=== PATIENT | female | born 1965 | race Caucasian/White ===

== ENCOUNTER 2018-01-25 14:39 | Inpatient (IN) | payer OTHER ==
[~2018-01-25] VITALS: Ht 160 cm; Wt 83.5 kg
[2018-01-25 16:27] LABS: BASOPHILS # (AUTO) 0.1 (0.0-0.1); BASOPHILS % 0.5 % (0.0-1.0); EOSINOPHILS # (AUTO) 0.1 (0.0-0.4); EOSINOPHILS % 0.6 % (0.0-6.0); HEMATOCRIT 34.7 % (34.2-44.1); HEMOGLOBIN 11.6 g/dL (12.0-16.0); LYMPHOCYTES # (AUTO) 2.3 (1.0-3.2); LYMPHOCYTES % 15.1 % (18.0-39.1); MEAN CORPUSCULAR HEMOGLOBIN 29.3 pg (28-32); MEAN CORPUSCULAR HGB CONC 33.4 g/dL (31-35); MEAN CORPUSCULAR VOLUME 87.6 fL (81-99); MONOCYTES # (AUTO) 0.8 (0.2-0.8); MONOCYTES % 5.4 % (4.4-11.3); NEUTROPHILS # (AUTO) 11.7 (2.1-6.9); NEUTROPHILS % 77.5 % (38.7-80.0); PLATELET COUNT 332 x10e3/uL (140-360); RED BLOOD COUNT 3.96 x10e6/uL (3.6-5.1); RED CELL DISTRIBUTION WIDTH 13.2 % (11.7-14.4)
[2018-01-25 16:35] LABS: INR 0.9
[2018-01-25 16:36] LABS: PARTIAL THROMBOPLASTIN TIME 26.8 seconds (23.8-35.5)
[2018-01-25 16:45] LABS: ALANINE AMINOTRANSFERASE 51 IU/L (0-55); ALBUMIN 2.8 g/dL (3.5-5.0); ALBUMIN/GLOBULIN RATIO 0.6 (0.8-2.0); ALKALINE PHOSPHATASE 115 IU/L (40-150); ANION GAP 17.2 mmol/L (8-16); BLOOD UREA NITROGEN 18 mg/dL (7-26); BUN/CREATININE RATIO 20 (6-25); CALCIUM 8.9 mg/dL (8.4-10.2); CARBON DIOXIDE 22 mmol/L (22-29); CHLORIDE 100 mmol/L (98-107); CREATINE KINASE 125 IU/L (29-168); CREATININE, SERUM 0.92 mg/dL (0.57-1.11); EST GLOMERULAR FILTRATION RATE > 60 ML/MIN (60-); GLUCOSE 353 mg/dL (74-118); POTASSIUM 3.2 mmol/L (3.5-5.1); SODIUM 136 mmol/L (136-145)
[2018-01-25] MEDS ORDERED: FUROSEMIDE INJ 10 MG/ML 4 ML VIAL IV ONE (16:45)
[2018-01-25 17:15] LABS: CLARITY,URINE SL CLOUDY (CLEAR); COLOR,URINE STRAW (YELLOW); LEUKOCYTE ESTERASE ,URINE NEGATIVE (NEGATIVE); NITRITE,URINE POSITIVE (NEGATIVE); PROTEIN,URINE DIPSTICK 1+ (NEGATIVE)
[2018-01-25 17:16] LABS: BILIRUBIN,URINE NEGATIVE (NEGATIVE); KETONES,URINE 1+ (NEGATIVE); URINE UROBILINOGEN 0.2 mg/dL (0.2 - 1)
--- NOTE | 2018-01-25 17:21 | Diagnostic Imaging Report ---
EXAMINATION: CHEST SINGLE (PORTABLE) COMPARISON: None INDICATION: Shortness of breath DISCUSSION: Frontal view of the chest obtained at 1636 hours. HEART AND MEDIASTINUM: The heart is top normal in size LINES: None. LUNGS: Diffuse alveolar airspace opacities in a perihilar distribution. Pulmonary vessels are prominent and indistinct. PLEURA: No large effusions. No pneumothorax BONES AND SOFT TISSUES: No focal osseous lesion. The soft tissues are normal. IMPRESSION: Pulmonary vascular congestion and pulmonary edema. Signed by: Dr. Miguel A Alston MD on 01/25/2018 5:18 PM
[2018-01-25 17:27] LABS: BACTERIA,URINE MANY /HPF; EPITHELIAL CELLS,URINE RARE /LPF; YEAST,URINE MODERATE
--- OUTSIDE RECORDS SUMMARY | 2018-01-25 19:11 | XMS REPORT ---
Author Author [facility] Address Unknown Phone Unavailable Care Team Providers Care Personal Coach Name Role Phone Patrica BERNARD Unavailable Unavailable Problems This patient has no known problems. Allergies, Adverse Reactions, Alerts This patient has no known allergies or adverse reactions. Medications This patient has no known medications. Results Test Description Test Time Test Comments Text Results Atomic Results Result Comments CHEST SINGLE (PORTABLE) 2018-01-25 17:16:00 [place] [id number] Patient Name: ADELFO BERUMEN MR #: [id number] : 1965 Age/Sex: 52/F Req #: [id number] Adm Physician: Ordered by: EMERY BERNARD MD Report #: [id number] Location: ER Room/Bed: Procedure: [id number] DX/CHEST SINGLE (PORTABLE) Exam Date: 01/25/18 Exam Time: 1630 REPORT STATUS: Signed EXAMINATION: CHEST SINGLE (PORTABLE) COMPAR LANEY: None INDICATION: Shortness of breath DISCUSSION: Frontal view of the chest obtained at 1636 hours. HEART AND MEDIASTINUM: The heart is top normal in size LINES: None. LUNGS: Diffuse alveolar airspace opacities in a perihilar distribution. Pulmonary vessels are prominent and indistinct. PLEURA: No large effusions. No pneumothorax BONES AND SOFT TISSUES: No focal osseous lesion. The soft tissues are normal. IMPRESSION: Pulmonary vascular congestion and pulmonary edema. Signed by: Dr. Miguel A Alston MD on 01/25/2018 5:18 PM Dictated By: MIGUEL A ALSTON MD 17 Transcribed By: CONY on 01/25/181717 COPY TO: EMERY BERNARD MD
[2018-01-25] MEDS ORDERED: ASPIRIN 81 MG CHEW TAB PO ONE (19:15)
[2018-01-25] MEDS ORDERED: DEXTROSE 50% SYRINGE 50 ML IV PRN (21:00)
[2018-01-25] MEDS: INSULIN REGULAR, HUMAN 100 UNIT/1 ML 3ML VIAL SQ SCH (21:27)
--- NOTE | 2018-01-25 23:35 | NUR ---
REC'D REPORT FROM JEANETTE PERALTA. PT ALERT AND ORIENTED X4, 2L NC SATS 94%. NO COMPLAINTS AT THIS TIME. CALL YUAN IN REACH
[2018-01-26] MEDS ORDERED: POTASSIUM CHLORIDE 20 MEQ TAB CR PO STA (00:21)
[2018-01-26 00:23] LABS: CREATINE KINASE MB 1.4 ng/mL (0-5.0)
[2018-01-26 07:01] LABS: CHOL/HDL RATIO 4.4 (3.0-3.6)
[2018-01-26] MEDS: INSULIN REGULAR, HUMAN 100 UNIT/1 ML 3ML VIAL SQ SCH ×4 (07:50→21:00)
[2018-01-26 07:52] LABS: CREATINE KINASE MB 1.2 ng/mL (0-5.0)
[2018-01-26] MEDS ORDERED: CEFTRIAXONE SOD 1 GM VIAL IV SCH (08:15)
[2018-01-26] MEDS ORDERED: POTASSIUM CHLORIDE 20 MEQ TAB CR PO ONE (08:30)
[2018-01-26 08:33] LABS: ANION GAP 16.4 mmol/L (8-16); CARBON DIOXIDE 23 mmol/L (22-29); CHLORIDE 100 mmol/L (98-107); CREATININE, SERUM 0.75 mg/dL (0.57-1.11); EST GLOMERULAR FILTRATION RATE > 60 ML/MIN (60-); GLUCOSE 273 mg/dL (74-118); POTASSIUM 3.4 mmol/L (3.5-5.1); SODIUM 136 mmol/L (136-145)
[2018-01-26 08:37] LABS: CALCIUM 6.7 mg/dL (8.4-10.2)
[2018-01-26 08:43] LABS: BLOOD UREA NITROGEN 13 mg/dL (7-26); BUN/CREATININE RATIO 17 (6-25)
[2018-01-26 08:53] LABS: BASOPHILS # (AUTO) 0.1 (0.0-0.1); BASOPHILS % 0.4 % (0.0-1.0); EOSINOPHILS # (AUTO) 0.1 (0.0-0.4); EOSINOPHILS % 0.5 % (0.0-6.0); HEMATOCRIT 37.3 % (34.2-44.1); LYMPHOCYTES # (AUTO) 2.1 (1.0-3.2); LYMPHOCYTES % 14.3 % (18.0-39.1); MEAN CORPUSCULAR HEMOGLOBIN 29.2 pg (28-32); MEAN CORPUSCULAR HGB CONC 32.2 g/dL (31-35); MEAN CORPUSCULAR VOLUME 90.8 fL (81-99); MONOCYTES # (AUTO) 0.8 (0.2-0.8); MONOCYTES % 5.3 % (4.4-11.3); NEUTROPHILS # (AUTO) 11.8 (2.1-6.9); NEUTROPHILS % 78.9 % (38.7-80.0); PLATELET COUNT 355 x10e3/uL (140-360); RED BLOOD COUNT 4.11 x10e6/uL (3.6-5.1); RED CELL DISTRIBUTION WIDTH 13.6 % (11.7-14.4)
--- NOTE | 2018-01-26 08:55 | Consultation ---
DATE OF CONSULTATION: January 25, 2018 CARDIOLOGY CONSULTATION REASON FOR CONSULTATION: New-onset CHF. REFERRING PHYSICIAN: Dr. Segura HPI: This is a 52-year-old female that presented with bilateral lower extremity edema. According to her, she stated that for the last 1 week she has been having shortness of breath, bilateral lower extremity edema and generalized weakness. She saw her PCP. She stated the PCP told her to come to the emergency room to get her heart checked. She stated having a history of diabetes but was off insulin and the pills for the last 5 years because she could not afford it. She denied any chest pain, any palpitations, any dizziness, any diaphoresis or headache. Chest x-ray showed pulmonary vascular congestion and pulmonary edema. BNP was 283. Troponin was negative times 3. EKG showed normal sinus rhythm with no ST abnormalities. PAST MEDICAL HISTORY 1. Tobacco abuse. 2. Diabetes, noncompliant. PAST SURGICAL HISTORY: Partial hysterectomy. FAMILY HISTORY: Noncontributory. SOCIAL HISTORY: She lives at home with family, and she smokes a pack of cigarettes daily. MEDICATIONS: She was on none at home. ALLERGIES: SHE IS NOT ALLERGIC TO ANY MEDICATION. REVIEW OF SYSTEMS: Negative except those mentioned above. She is positive for shortness of breath and bilateral lower extremity edema. PHYSICAL EXAMINATION VITAL SIGNS: Temperature 98, heart rate 97, blood pressure 158/82, respirations 20, oxygen saturation 98% on 2 L nasal cannula. GENERAL: She is awake, alert and oriented times 3. HEENT: Mucous membranes are moist. NECK: Supple. LUNGS: Bilateral with decreased breath sounds. CARDIOVASCULAR: S1 and S2 present. ABDOMEN: Soft. NEURO: Intact. EXTREMITIES: Bilateral lower extremities with 2 to 3+ pitting edema. LABS: Sodium 136, potassium 3.2, chloride 100, CO2 22, BUN 18, creatinine 0.92, glucose 353. White blood cells 15.0, hemoglobin 11.6, hematocrit 34.7, platelets 332. PT 13.0, PTT 26.8, INR 0.90. IMPRESSION 1. Acute congestive heart failure, type unknown. 2. Diabetes, uncontrolled. 3. Hypertension. 4. Elevated white blood cells. 5. Tobacco abuse. 6. Anemia. 7. Hypokalemia. 8. Noncompliance. ASSESSMENT AND PLAN 1. Pending echo to assess the LV and the valve function. 2. Go ahead and get bilateral extremity venous Doppler to rule out any DVT due to the edema. 3. Will go ahead and add beta ector, JERI inhibitor and diuretic. 4. Put her on fluid restriction. 5. She has been consulted on tobacco cessation. 6. Potassium has been replaced. 7. Will check hemoglobin A1c. 8. Further cardiac workup pending clinical course. Thank you for this consultation. Dictated by Jennifer Renteria NP. Job#: [id number]
--- NOTE | 2018-01-26 08:55 | History and Physical ---
CHIEF COMPLAINT: Bilateral leg swelling, shortness of breath on exertion progressively worsening since last 4 to 5 days. HISTORY OF PRESENT MEDICAL ILLNESS: A 52-year-old pleasant white female with past medical history of diabetes mellitus, type 2, was admitted at [facility] last evening with the above complaints. The patient was seen in my office for the first time yesterday morning with the above complaints. As per the patient, she started having bilateral leg and feet swelling, and felt as if her body was generalized swollen for the last 4 to 5 days. Also, the patient had started having trouble breathing on exertion, which progressively got worse. As per the patient, she was unable to sleep flat in bed as she could not breathe. Hence, the patient came to my office yesterday. After seeing the patient with possibility of acute CHF exacerbation, new onset, I referred the patient to the ER. In the emergency room, the patient was seen by the emergency room doctor and admitted for CHF exacerbation. At present, the patient is lying comfortably in bed. No apparent distress. No chest pain. No shortness of breath at rest. No nausea, vomiting, diarrhea. No abdominal pain or loss of consciousness. No palpitations. No headaches. No hematemesis. No melena, hematuria or dysuria. No fever. No cough. No witnessed seizures. PAST MEDICAL HISTORY: Diabetes mellitus, type 2. MEDICATIONS: None at home. SURGICAL HISTORY: Partial hysterectomy. FAMILY HISTORY: Mother diagnosed with heart disease. SOCIAL HISTORY: Smoking plus of 6-10 cigarettes per day. Denies any alcohol. Denies any drug use. Lives with family. ALLERGIES: NO KNOWN DRUG ALLERGIES. REVIEW OF SYSTEMS: As per HPI. PHYSICAL EXAMINATION GENERAL: Patient is alert, awake and oriented times 3. In no apparent distress. Lying in bed. VITALS: Temperature is 98.6, pulse is 90 per minute, respiratory rate is 18 per minute, blood pressure is 150/80, saturation is 98%. SKIN: No cyanosis. No icterus. No pallor. HEENT: Normocephalic and atraumatic. PERRLA. NECK: Soft and supple. No JVD or carotid bruits. LUNGS: Air entry bilaterally equal. Bibasilar rales plus. HEART: S1 and S2. No murmur or gallop. ABDOMEN: Soft and nontender. Bowel sounds plus. 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 No focal deficits. EXTREMITIES: Bilateral pedal edema, +2. LABS: On admission to ER, sodium 136, potassium 3.2, chloride 100, bicarb 22, BUN 18, creatinine 0.9, glucose 353. LFTs noted. Cardiac enzymes times 2 negative. White count 15, hemoglobin 11.6, hematocrit 34.7, and platelets 332,000. PT 39, INR 0.9 and PTT 26.8. Urine shows nitrite positive, rbcs 11-20, wbcs none, bacteria many, moderate yeast. EKG shows sinus tachycardia at 114 beats per minute, ST-T changes plus in inferolateral leads. Chest x-ray shows pulmonary vascular congestion and pulmonary edema. BNP is 283. ASSESSMENT 1. Acute exacerbation of congestive heart failure, new onset. 2. Diabetes mellitus, type 2. 3. Hypertension. PLAN: Admit the patient to med/tele. Lasix 40 mg IV q. 12 h., lisinopril 5 mg p.o. daily. A 2-D echo. Venous Doppler of legs. Cardiology consult with Dr. Burleson. He is aware about the patient. Endocrine consult with Dr. Mares. Oxygen and neb treatments as needed. Further care and treatment per the course of the patient in the hospital. Discussed with the patient at length. Job#: [id number] JANET
[2018-01-26] MEDS ORDERED: LISINOPRIL 2.5 MG TAB PO SCH (09:00)
[2018-01-26] MEDS: LISINOPRIL 2.5 MG TAB PO SCH (09:30)
[2018-01-26] MEDS: METOPROLOL TARTRATE 25 MG TAB PO SCH (09:30)
[2018-01-26] MEDS: FUROSEMIDE INJ 10 MG/ML 4 ML VIAL IV SCH ×2 (09:35→21:00)
[2018-01-26] MEDS: CEFTRIAXONE SOD 1 GM/NS 50 ML 50 ML IV SCH (09:38)
[2018-01-26] MEDS ORDERED: CALCIUM GLUCONATE 10% INJ 4.65 MEQ in SODIUM CHLORIDE 0.9% 50ML 50 ML IV ONE (11:30)
--- NOTE | 2018-01-26 12:00 | NUR ---
urine output at 1130 was 300 cc
--- NOTE | 2018-01-26 13:15 | Consultation ---
DATE OF CONSULTATION: REQUESTING PHYSICIAN: Dr. Yadav REASON FOR CONSULTATION: CHF. HISTORY OF PRESENT ILLNESS: Ms. Rivera is a 52-year-old lady with DICTATION STOPPED AT THIS POINT ("DISREGARD THIS DICTATION.") REPORT ALREADY DICTATED ITALO ESPINOZA MD Job#: [id number] SWETHA
--- NOTE | 2018-01-26 13:40 | NUR ---
pt resting in bed at this time denies any distress pt ate lunch
--- NOTE | 2018-01-26 15:09 | Consultation ---
DATE OF CONSULTATION: January 26, 2018 ENDOCRINE CONSULTATION A patient of Dr. Yadav. Thank you very much for referring this patient. HISTORY OF PRESENT ILLNESS: This is a 52-year-old white female who is referred to me for evaluation of uncontrolled diabetes mellitus and hypocalcemia. Patient reportedly is a known diabetic for almost 7 years. She has not taken any medicines for diabetes because she did not have insurance. Patient got insurance recently. She came to the hospital with a history of shortness of breath and swelling of both lower extremities. She is also complaining of some cramps in her feet and legs. During the hospital stay at the time of admission, her blood sugar was 353, anion gap was 17.2 and her calcium is around 6.7. Her hemoglobin A1c is 13.0. Patient also has history of hypertension. During the hospital stay, the patient was also found to have mild congestive cardiac failure. PHYSICAL EXAMINATION: GENERAL: Today the patient is alert, awake, a little bit apprehensive. She is moderately overweight. VITAL SIGNS: Her heart rate is around 78. Blood pressure 140/80 mmHg. HEENT: Examination essentially unremarkable. SKIN: She has bilateral mild pedal edema and some sores on her legs. CHEST: Bilateral vesicular breathing. She has bilateral bronchospasm. CARDIAC: Both 1st and 2nd heart sounds. There is no 3rd or 4th heart sound. Ejection sound grade 2/6. EXTREMITIES: Patient has evidence of diabetic sensory neuropathy in both lower extremities. CLINICAL IMPRESSION: 1. Diabetes mellitus type 2, uncontrolled with complications. 2. Congestive cardiac failure. 3. Hypertension. 4. Hypocalcemia. The plan at this time is to start her on the insulin Levemir at bedtime and sliding-scale insulin. Will also repeat a hemoglobin A1c and do an ionized calcium and PTH level. She also has hypokalemia. Thanks again for referring this patient. Job#: [id number] EV
[2018-01-26 15:22] LABS: FREE T4 (FREE THYROXINE) 1.11 ng/dL (0.9-1.8); THYROID STIMULATING HORMONE 0.492 uIU/mL (0.350-4.940)
[2018-01-26 16:10] VITALS: BP 167/77
--- NOTE | 2018-01-26 16:10 | NUR ---
PATIENT RECEIVED FROM ER PER STRETCHER. ALERT AND ORIENTED X 3. SKIN WARM AND DRY TO TOUCH, WITH MULTIPLE SCARS TO LOWER EXTREMITIES. RESPIRATION EVEN AND UNLABORED, O2 IN PLACE VIA N/C. TELEMETRY BOX 2400 WITH CONTINUOUS PULSE OX. ABDOMEN SOFT, AND NON DISTENDED. EDEMA TO LOWER EXTREMITIES. PATIENT ORIENTED TO SURROUNDINGS. BED IN LOWER POSITION, CALL LIGHT AT REACH. INSTRUCTED TO CALL FOR ASSISTANCE NEEDED.
[2018-01-26 16:12] VITALS: BP 167/77
[2018-01-26] MEDS: INSULIN LISPRO 100 UNIT/1 ML 3ML VIAL SQ SCH ×2 (16:30→21:00)
--- NOTE | 2018-01-26 17:14 | Consultation ---
DATE OF CONSULTATION: January 26, 2018 RENAL CONSULTATION REASON FOR CONSULT: For management of underlying electrolyte imbalance. HISTORY OF PRESENT ILLNESS: This is a 52-year-old patient with a history of type 2 diabetes diagnosed 5 years ago, who was admitted with new onset congestive heart failure. She has never had an HI. Has a history of hypertension. Denies any kidney disorder, kidney stones or kidney problems. She states that she knows that she has diabetes for the last 5 years, but it could have been longer according to her. SHE DENIES ANY DRUG ALLERGIES. She used to smoke but quit about 5 days ago. She does not drink. She is . Has a family history of hypertension and diabetes. Chest x-ray shows evidence of pulmonary edema. Blood and urine cultures are pending. Laboratory test shows a white count of 15, hemoglobin 12, with an ionized calcium of 1.1 and then repeated 1.2. Her calcium level was found to be low, 6.7. It was 8.9 yesterday. Her hemoglobin A1c is 13.8. She has got a creatinine of 0.75 with a bicarbonate 23. Potassium 3.4. Sodium 136. ALLERGIES: NO APPARENT DRUG ALLERGIES. CURRENT MEDICATIONS: Patient received a dose of calcium gluconate for the low calcium. She is on aspirin to chew. Ceftriaxone once daily. Sliding-scale insulin. Received one-time dose of Lasix IV, now currently on 40 mg IV q.12. Insulin. Lisinopril 5 mg daily. She is on metoprolol 12.5 mg daily. She received two doses of K-Dur. PHYSICAL EXAMINATION: GENERAL: Patient found to be awake, alert, lying supine. No apparent distress. VITALS: Blood pressure of 120/75. Pulse rate 77. Afebrile. Respiratory rate 17. HEAD AND NECK: Cornea clear. Oral mucosa moist. Neck veins flat. LUNGS: Relatively clear. Somewhat decreased air entry at bases but no rales. HEART: S1 and S2 audible. A 2/6 to 3/6 ejection systolic murmur heard over left sternal border. ABDOMEN: Otherwise soft, nontender. LOWER EXTREMITY EXAMINATION: No edema with some healed scars noted, appears like diabetic skin lesions but no open sores. IMPRESSION: 1. Hypocalcemia. Etiology unclear. Patient completely asymptomatic. 2. Underlying hypertension. 3. New onset congestive heart failure. Await intact PTH. Replace potassium. Will repeat chemistries in the morning. Obtain urinalysis, urine protein-creatinine ratio, kidney ultrasound. Please see orders. Job#: [id number] EV
[2018-01-26] MEDS: ENOXAPARIN SOD INJ 40 MG/0.4 ML SYR SC SCH (17:36)
--- NOTE | 2018-01-26 19:10 | NUR ---
REPORT RECEIVED FROM OFF GOING NURSE, PT SITTING UP IN BED ALERT AND ORIENTED, NO DISTRESS NOTED, O2 NC WORN, FAMILY AT BEDSIDE, PT DENIES NEEDS, BED LOCKED AND LOW, CALL LIGHT IN REACH, INSTRUCTED TO CALL WITH NEEDS
[2018-01-26 19:57] VITALS: BP 154/80
[2018-01-26 20:00] VITALS: BP 154/80
[2018-01-26] MEDS ORDERED: INSULIN DETEMIR 100 UNIT/ML PEN SQ SCH (21:00)
[2018-01-27] VITALS: BP 135/73
[2018-01-27 04:40] VITALS: BP 131/80
--- NOTE | 2018-01-27 05:31 | NUR ---
PTs BED ALARM SOUNDING,PT ATTEMPTING TO GET OUT OF BED, PT ALERT AND ORIENTED, NO DISTRESS NOTED, PT ASSISTED OUT OF BED, TELEMETRY NOTED, PT REMOVED O2NC, EDUCATION GIVEN, NO RESP DISTRESS NOTED, CALL LIGHT IN REACH, DENIES NEEDS INSTRUCTED TO CALL WITH NEEDS
[2018-01-27 06:18] LABS: ALANINE AMINOTRANSFERASE 29 IU/L (0-55); ALBUMIN 2.4 g/dL (3.5-5.0); ALBUMIN/GLOBULIN RATIO 0.6 (0.8-2.0); ALKALINE PHOSPHATASE 73 IU/L (40-150); ANION GAP 14.1 mmol/L (8-16); BLOOD UREA NITROGEN 18 mg/dL (7-26); BUN/CREATININE RATIO 23 (6-25); CALCIUM 8.7 mg/dL (8.4-10.2); CARBON DIOXIDE 27 mmol/L (22-29); CHLORIDE 100 mmol/L (98-107); CREATININE, SERUM 0.77 mg/dL (0.57-1.11); EST GLOMERULAR FILTRATION RATE > 60 ML/MIN (60-); GLUCOSE 214 mg/dL (74-118); POTASSIUM 3.1 mmol/L (3.5-5.1); SODIUM 138 mmol/L (136-145)
[2018-01-27 06:59] LABS: BASOPHILS # (AUTO) 0.1 (0.0-0.1); BASOPHILS % 0.5 % (0.0-1.0); EOSINOPHILS # (AUTO) 0.2 (0.0-0.4); EOSINOPHILS % 2.2 % (0.0-6.0); HEMATOCRIT 31.4 % (34.2-44.1); HEMOGLOBIN 10.4 g/dL (12.0-16.0); LYMPHOCYTES # (AUTO) 2.2 (1.0-3.2); LYMPHOCYTES % 23.5 % (18.0-39.1); MEAN CORPUSCULAR HEMOGLOBIN 29.2 pg (28-32); MEAN CORPUSCULAR HGB CONC 33.1 g/dL (31-35); MEAN CORPUSCULAR VOLUME 88.2 fL (81-99); MONOCYTES # (AUTO) 0.7 (0.2-0.8); MONOCYTES % 7.5 % (4.4-11.3); NEUTROPHILS # (AUTO) 6.2 (2.1-6.9); PLATELET COUNT 264 x10e3/uL (140-360); RED BLOOD COUNT 3.56 x10e6/uL (3.6-5.1); RED CELL DISTRIBUTION WIDTH 13.3 % (11.7-14.4)
[2018-01-27] MEDS ORDERED: PANTOPRAZOLE SOD 40 MG TABEC PO SCH (07:30)
[2018-01-27] MEDS: INSULIN REGULAR, HUMAN 100 UNIT/1 ML 3ML VIAL SQ SCH ×2 (07:30→11:30)
[2018-01-27 08:15] VITALS: BP 131/80
--- NOTE | 2018-01-27 08:15 | NUR ---
Pt received resting in bed. Alert and oriented x4. Pt with left wrist saline lock #[id number] patent. Oriented to staff and surroundings. Emotional support given. Fall precautions maintained. Call sloan within reach. All meds given as ordered. Will monitor
[2018-01-27] MEDS ORDERED: SODIUM CHLORIDE 0.9% 250ML 250 ML ONE (08:16)
[2018-01-27 08:17] VITALS: BP 154/66
[2018-01-27] MEDS: FUROSEMIDE INJ 10 MG/ML 4 ML VIAL IV SCH (08:30)
[2018-01-27] MEDS: METOPROLOL TARTRATE 25 MG TAB PO SCH (08:30)
[2018-01-27] MEDS: CEFTRIAXONE SOD 1 GM/NS 50 ML 50 ML IV SCH (08:30)
[2018-01-27] MEDS: LISINOPRIL 2.5 MG TAB PO SCH (08:31)
[2018-01-27] MEDS: INSULIN LISPRO 100 UNIT/1 ML 3ML VIAL SQ SCH ×3 (08:33→16:38)
[2018-01-27] MEDS ORDERED: POTASSIUM CHLORIDE 20 MEQ TAB CR PO ONE (09:00)
[2018-01-27 12:49] VITALS: BP 135/63
[2018-01-27] MEDS ORDERED: INSULIN LISPRO 100 UNIT/1 ML 3ML VIAL SQ SCH (16:30)
[2018-01-27] MEDS: ENOXAPARIN SOD INJ 40 MG/0.4 ML SYR SC SCH (16:38)
[2018-01-27 16:49] VITALS: BP 140/63
[2018-01-27] MEDS ORDERED: PNEUMOCOCCAL VACCINE POLYVALENT 23 MCG/0.5 ML VIAL IM STA (17:23)
[2018-01-27] MEDS ORDERED: INFLUENZA VIRUS VAC SPLIT INJ 0.5 ML SYR IM STA (17:23)
[2018-01-27] MEDS ORDERED: LOPRESSOR25 MG PO (17:25)
[2018-01-27] MEDS ORDERED: LISINOPRIL2.5 MG PO (17:26)
[2018-01-27] MEDS ORDERED: LASIX40 MG PO (17:26)
[2018-01-27] MEDS ORDERED: in (17:28)
[2018-01-27] MEDS ORDERED: LEVEMIR100 UNIT/1 SQ (17:28)
[2018-01-27] MEDS ORDERED: HUMALOG MI100 UNIT/4 SC (17:29)
[2018-01-27] MEDS ORDERED: TORSEMIDE10 MG PO (18:02)
[2018-01-27] MEDS ORDERED: POTASSIUM CHLO20 ME1 PO (18:03)
[2018-01-27] MEDS ORDERED: METOPROLOL SUCC25 MG PO (18:04)
--- NOTE | 2018-01-27 18:33 | NUR ---
Pt given discharge instructions regarding meds, diet, activities, insulin injection, and follow up appointment. Pt verbalized understanding of teaching. Awaiting friend to pick her up
--- NOTE | 2018-01-27 18:50 | NUR ---
Pt left via wheelchair
[2018-01-27] MEDS ORDERED: INSULIN DETEMIR 100 UNIT/ML PEN SQ SCH (21:00)
== END 2018-01-27 18:50 | disposition home or self-care (01) | DRG 291 ==
LOC: ER 14:39 → ERHOLD 19:09 → OBSVTOIN 19:09 → MED/SURG3 01-26 15:54
PROVIDERS: ADMIT Internal Medicine; ATTEND Internal Medicine
DX: I11.0 Hypertensive heart disease with heart failure (principal); I50.21 Acute systolic (congestive) heart failure; F17.210 Nicotine dependence, cigarettes, uncomplicated; E11.65 Type 2 diabetes mellitus with hyperglycemia; E87.8 Other disorders of electrolyte and fluid balance, not elsewhere classified; E83.51 Hypocalcemia
CPT/HCPCS: 36415; 71045; 80048; 80053; 80061; 81001; 82306; 82330; 82550; 82553; 82948; 83036; 83880; 83970; 84439; 84443; 84484; 85025; 85610; 85730; 87040; 87086; 87186; 90732; 93005; 93306; 93970; 99284; J0610; J0696; J1650; J1940; J7050